=== PATIENT | female | born 1940 | race Caucasian/White ===

== ENCOUNTER → 2016-10-20 | Outpatient (CLI) | payer OTHER ==
[~2016-10-20] MED LIST: ASPEC81; BNC40; METO50TA7 PO; ROSU40TA PO
[2016-10-20 12:37] LABS: ALT/SGPT 33 U/L (12-78); BLOOD UREA NITROGEN 20 mg/dl (7-18); BUN/CREATININE RATIO 24.3 (10-20); CALCIUM 8.8 mg/dl (8.5-10.1); CARBON DIOXIDE 28 mmol/L (21-32); CHLORIDE 107 mmol/L (98-107); CHOLESTEROL 183 mg/dl (0-200); CREATININE 0.84 mg/dl (0.60-1.20); GLUCOSE 121 mg/dl (70-99); POTASSIUM 3.9 mmol/L (3.5-5.1); SODIUM 142 mmol/L (136-145); TRIGLYCERIDES 209 mg/dl (0-150); VERY LOW DENSITY LIPOPROT CALC 42 mg/dl
[2016-10-20 12:40] LABS: ALKALINE PHOSPHATASE 76 U/L (45-117); AST/SGOT 17 U/L (15-37); CHOLESTEROL/HDL RATIO 5.1; HDL CHOLESTEROL 36 mg/dl; LDL CHOLESTEROL CALCULATED 105 mg/dl
[2016-10-20 12:41] LABS: ESTIMATED AVERAGE GLUCOSE 123 mg/dl; HA1C FLAG Normal (Normal)
== END | disposition home or self-care (01) ==
LOC: C.LABPVFM 08:10
PROVIDERS: ATTEND Nurse Practitioner
DX: I10 Essential (primary) hypertension (principal); R73.01 Impaired fasting glucose; E78.2 Mixed hyperlipidemia

== ENCOUNTER → 2016-10-22 | Outpatient (CLI) | payer OTHER ==
--- NOTE | 2016-10-22 11:52 | DIAGNOSTIC IMAGING REPORT ---
SACRUM AND COCCYX 3 VIEWS CLINICAL HISTORY: Chronic left gluteal numbness. Coccygeal pain. FINDINGS: 3 views of the sacrum and coccyx are obtained. No prior studies are available for comparison at the time of dictation. The skeletal structures are osteopenic. There is no radiographic evidence of sacrococcygeal fracture. Lumbosacral spondylosis is partially imaged. Sclerotic change is noted in the sacroiliac joints. Suture material projects over the pelvis. There is no evidence of bowel obstruction. IMPRESSION: 1. No acute bony abnormality is seen. 2. Osteopenia and degenerative change as above. Electronically signed by: Shan Yeager M.D. 10/22/2016 11:50 AM Dictated Date/Time: 10/22/2016 11:49 AM
== END | disposition home or self-care (01) ==
LOC: C.RADPV 10:33
PROVIDERS: ATTEND Nurse Practitioner
DX: M53.3 Sacrococcygeal disorders, not elsewhere classified (principal); M85.88 Other specified disorders of bone density and structure, other site

== ENCOUNTER → 2017-04-19 | Outpatient (CLI) | payer OTHER ==
[2017-04-19 12:41] LABS: BLOOD UREA NITROGEN 25 mg/dl (7-18); BUN/CREATININE RATIO 25.2 (10-20); CALCIUM 9.7 mg/dl (8.5-10.1); CARBON DIOXIDE 27 mmol/L (21-32); CHLORIDE 105 mmol/L (98-107); CREATININE 0.99 mg/dl (0.60-1.20); GLUCOSE 125 mg/dl (70-99); SODIUM 139 mmol/L (136-145)
[2017-04-19 13:14] LABS: ESTIMATED AVERAGE GLUCOSE 126 mg/dl; HA1C FLAG Normal (Normal)
== END | disposition home or self-care (01) ==
LOC: C.LABPVFM 09:05
PROVIDERS: ATTEND Nurse Practitioner
DX: I10 Essential (primary) hypertension (principal); R73.01 Impaired fasting glucose

== ENCOUNTER → 2017-10-19 | Outpatient (CLI) | payer OTHER ==
[~2017-10-19] MED LIST changes: -METO50TA7 PO; +METO50TA8 PO
[2017-10-19 12:56] LABS: BLOOD UREA NITROGEN 20 mg/dl (7-18); CALCIUM 9.3 mg/dl (8.5-10.1); CARBON DIOXIDE 30 mmol/L (21-32); CHOLESTEROL 141 mg/dl (0-200); CREATININE 0.93 mg/dl (0.60-1.20); GLUCOSE 110 mg/dl (70-99); SODIUM 139 mmol/L (136-145)
[2017-10-19 12:59] LABS: LDL CHOLESTEROL CALCULATED 68 mg/dl
== END | disposition home or self-care (01) ==
LOC: C.LABPVFM 10:01
PROVIDERS: ATTEND Nurse Practitioner
DX: I10 Essential (primary) hypertension (principal); R73.01 Impaired fasting glucose; E78.2 Mixed hyperlipidemia

== ENCOUNTER 2022-06-01 17:14 | Inpatient (IN) ==
--- NOTE | 2022-06-01 19:11 | Emergency Department Note ---
History of Present Illness General Chief complaint: Leg Injury/Pain Stated complaint: LEG INJURY Time Seen by Provider: 06/01/22 19:10 History of Present Illness Maximum Pain Intensity: 5 This is an 81-year-old female with a history of hypertension, high cholesterol, accompanied by her daughter who presents with an injury to her right knee. This is secondary to a fall that occurred several hours ago. Her has Parkinson's and was walking through the door and accidentally tripped forward so she tried to catch him and this caused her to twist the right knee and fell onto the right knee. She did not hit her head or lose consciousness, did not injure anything else when she fell. She has been unable to ambulate on the right knee ever since the fall. She has not taken anything for pain and does not want anything now. She denies any headache, neck pain, back pain, chest pain, shortness of breath, abdominal pain, nausea, vomiting, new numbness or tingling in her feet. She has never injured or had any surgery on the right knee. Does not take blood thinners. Home Medications Medication Instructions Recorded Confirmed Type aspirin 81 mg tablet,delayed 81 mg PO HS 06/01/22 06/01/22 History release metoprolol succinate 50 mg 50 mg PO QAM 06/01/22 06/01/22 History tablet,extended release 24 hr olmesartan 40 1 tab PO QAM 06/01/22 06/01/22 History mg-hydrochlorothiazide 12.5 mg tablet (Benicar HCT) rosuvastatin 40 mg tablet 40 mg PO HS 06/01/22 06/01/22 History Allergies Allergy/AdvReac Type Severity Reaction Status Date / Time codeine Allergy Unknown Verified 06/01/22 21:09 oxycodone AdvReac Severe SEVERE Verified 06/01/22 21:09 ITCHING meperidine AdvReac Unknown Unknown Verified 06/01/22 21:09 morphine AdvReac Unknown Unknown Verified 06/01/22 21:09 propoxyphene AdvReac Unknown Unknown Verified 06/01/22 21:09 Past Med/Surg History Medical History Low back pain Lumbar disc herniation Myofascial pain Surgical History History of hysterectomy History of neck surgery History of vaginal surgery Family History Daughter Breast cancer Denies family history of Ovarian cancer Prostate cancer Myocardial infarction Colorectal cancer Social History Smoking Status: Former smoker Tobacco Type: Cigarettes Number of Years Since Quit: 20; Hx Alcohol Use: Yes Hx Substance Use: No Preferred Language: Yemeni Communication Ability: Effective Visual Impairment: No Limitations Hearing Ability: Normal Beliefs That Will Affect Care: None marital status: Current Living Situation: Spouse current occupational status: retired Feels Safe at Home: Yes Dental Care, Regularly: No Seatbelt Use: always Review of Systems See HPI for pertinent positives & negatives. and A total of 10 systems reviewed and were otherwise negative Physical Exam Vital Signs Vital Signs - 24 hr 06/01/22 17:33 06/01/22 19:36 06/01/22 20:55 Temperature 98.2 F Temperature Source Temporal Artery Scan Pulse Rate 68 Pulse Rate [Left Finger] 60 58 L Respiratory Rate 20 20 20 Respiratory Effort / Characteristics Non-Labored Respiratory Depth Normal Blood Pressure 156/73 H Blood Pressure [Left Arm] 160/74 H 149/56 H Blood Pressure Mean 100 Blood Pressure Mean [Left Arm] 102 87 Pulse Oximetry 95 98 98 Oxygen Delivery Method Room Air Room Air Room Air Sepsis Recent Fever Within 48 Hours No Sepsis New/Unexplained Change in Mental Status N/A Sepsis Action Taken by Nursing No Action Required CONSTITUTIONAL: Well developed, well nourished, in no distress at rest however does appear to be in significant pain in the right knee with any changes in position. HEAD: Normocephalic, atraumatic. NECK: Full active range of motion. No spinous process tenderness RESPIRATORY: Breathing unlabored and symmetric. Lungs clear to auscultation bilaterally. No wheeze, rales, or rhonchi. CARDIOVASCULAR: Regular rate and rhythm. No murmurs, rubs, or gallops. PT pulses 2+ bilaterally. CHEST: Nontender, no crepitus. ABDOMEN: Normal bowel sounds. Soft, nontender, no peritonitis. No masses. MUSCULOSKELETAL: Moves bilateral upper extremities at all joints without pain or difficulty. Pelvis is stable, mild tenderness elicited in the right lateral hip. Right lower extremity: Knee is edematous compared to the contralateral knee. No obvious deformities. There is exquisite tenderness along the lateral joint line . Patient unable to bear weight on the knee. Ankle and toes with full range of motion, nontender. Back: No thoracic, lumbar, sacral spinous process tenderness. No step-off deformity. SKIN: [place], warm, dry. NEUROLOGIC: Awake, alert, oriented. Gaze is conjugate. Face symmetric. Sensation intact in bilateral lower extremities PSYCHIATRIC: Appropriate. Normal affect. Course Consultations Consultation #1: Spoke with Dr. Ortiz (orthopedics on-call) who agrees the patient should be admitted, will likely require PT and OT and rehab placement. Is hopeful this does not require surgery. Based on the patient's comfort with slight flexion, he recommends not splinting the patient this evening as she would not be able to tolerate a knee immobilizer, and recommends allowing the Ortho consult provider tomorrow to decide on appropriate splinting for the patient. He does recommend a Rosales catheter. Medical Decision Making Differential Diagnosis Fracture, dislocation, subluxation, sprain, strain, tendon injury, nerve injury, compartment syndrome, ligament injury, intrathoracic, intra-abdominal, among other pathology Medical Records Attestation: I reviewed the patient's medical records. Laboratory Data Result diagrams: 06/01/22 20:10 06/01/22 20:10 Imaging Data Attestation: I personally reviewed and interpreted this imaging study as follows: (I agree with the radiologist's interpretation) Radiologist's Impression: Hip/Pelvis X-Ray 06/01/22 19:22 XR hip RT 2V w pelvis CLINICAL HISTORY: fall, mild r hip tenderness COMPARISON STUDY: Sacrum 10/22/2016. FINDINGS: Suboptimal evaluation of the pelvis and hips due to the patient's body habitus. However, no definite fracture or dislocation within the pelvis or hips. The sacrum appears intact. Vascular calcifications are noted. Mild degenerative changes. IMPRESSION: No definite fracture or dislocation within the pelvis or hips ACT 112: Negative or not required by law. Electronically signed by: Iván Fields M.D. 06/01/2022 8:12 PM Knee X-Ray 06/01/22 19:22 XR knee RT 3V CLINICAL HISTORY: lateral joint line pain, fall. Right knee pain. COMPARISON STUDY: None. FINDINGS: There is a moderate lipohemarthrosis. There is a comminuted and displaced lateral tibial plateau fracture which demonstrates up to 5 mm of depression. There is nondisplaced fracture within the fibular head. The distal femur is intact. IMPRESSION: 1. Comminuted and displaced lateral tibial plateau fracture. 2. Nondisplaced fibular head fracture. 3. Moderate lipohemarthrosis. ACT 112: Negative or not required by law. Electronically signed by: Iván Fields M.D. 06/01/2022 8:06 PM MDM Narrative This is an 81-year-old female who presents with isolated right knee pain secondary to a twisting fall onto the right knee that occurred several hours ago. On exam, patient does appear to be in significant pain anytime she is changing positions with the right knee, is unable to fully extend the knee, feels better with slight flexion. She has significant tenderness over the lateral joint line of the right knee. Minimal tenderness appreciated over the right hip. No additional injuries identified. She is neurovascularly intact. X-ray of the right hip and right knee obtained demonstrating a comminuted depressed lateral tibial plateau fracture with an associated fibular head fracture. Patient declined anything for pain. Spoke with ED attending Dr. Mckinney who also evaluated the patient at bedside. We both agree admission is warranted as the patient will be unable to function at home given the extent of her injury and age. Spoke with Dr. Ortiz (orthopedics on-call) who agrees patient will need to be admitted, made specific recommendations as described above. Case discussed with hospitalist Dr. Chao who agrees to admit the patient. Baseline labs are pending at time of admission. Impression & Plan Closed fracture of tibial plateau, Closed fracture fibula, head, Fall due to accidental trip by another person Discharge Plan Visit Data Chief Complaint: Leg Injury/Pain Stated Complaint: LEG INJURY ED Provider: Jamin Mckinney ED Midlevel Provider: Grayson Reardon Discharge Problem: Closed fracture of tibial plateau, Closed fracture fibula, head, Fall due to accidental trip by another person Patient Disposition: Admitted As Inpatient Condition: Fair Forms Stand Alone Forms: [facility] Prescriptions Prescriptions: No Action rosuvastatin 40 mg tablet 40 mg PO HS aspirin 81 mg Tablet,Delayed Release (Dr/Ec) 81 mg PO HS metoprolol succinate 50 mg tablet extended release 24 hr 50 mg PO QAM olmesartan-hydrochlorothiazide [Benicar HCT] 40-12.5 mg tablet 1 tab PO QAM Referrals Referrals: Ema Becerra CRNP [Primary Care Provider] - : Closed fracture of tibial plateau Qualifiers: Encounter type: initial encounter Laterality: right Qualified Code(s): S82.141A - Displaced bicondylar fracture of right tibia, initial encounter for closed fracture Closed fracture fibula, head Qualifiers: Encounter type: initial encounter Laterality: right Qualified Code(s): S82.831A - Other fracture of upper and lower end of right fibula, initial encounter for closed fracture
--- NOTE | 2022-06-01 19:59 | Emergency Department Note ---
ED Visit Note Patient was seen with the physician contact center assistant at bedside. Patient's x-ray reveals a tibial plateau fracture patient has tenderness in the right lower extremity at the proximal tibia patient is neurovascularly intact distally. I agree with the plan of disposition and treatment. I have spoken to the patient and the patient's daughter at bedside. .
--- NOTE | 2022-06-01 20:08 | XRay Report ---
XR knee RT 3V CLINICAL HISTORY: lateral joint line pain, fall. Right knee pain. COMPARISON STUDY: None. FINDINGS: There is a moderate lipohemarthrosis. There is a comminuted and displaced lateral tibial pl ateau fracture which demonstrates up to 5 mm of depression. There is nondisplaced fracture within the fibular head. The distal femur is intact. IMPRESSION: 1. Comminuted and displaced lateral tibial plateau fracture. 2. Nondisplaced fibular head fracture. 3. Moderate lipohemarthrosis. ACT 112: Negative or not required by law. Electronically signed by: Iván Fields M.D. 06/01/2022 8:06 PM
--- NOTE | 2022-06-01 20:13 | XRay Report ---
XR hip RT 2V w pelvis CLINICAL HISTORY: fall, mild r hip tenderness COMPARISON STUDY: Sacrum 10/22/2016. FINDINGS: Suboptimal evaluation of the pelvis and hips due to the patient's body habitus. However, no definite fracture or dislocation within the pelvis or hips. The sacrum appears intact. Vascular calc ifications are noted. Mild degenerative changes. IMPRESSION: No definite fracture or dislocation within the pelvis or hips ACT 112: Negative or not required by law. Electronically signed by: Iván Fields M.D. 06/01/2022 8:12 PM
--- NOTE | 2022-06-01 21:28 | History & Physical Report ---
Date of Service June 01, 2022 Assessment & Plan (1) Fall due to accidental trip by another person: Plan: 81yo female with history of HTN, HLP presenting after a fall at home resulting in right sided comminuted and displaced lateral tibial plateau fracture and nondisplaced fibular head fracture. Patient is presently comfortable. RLE is elevated on a pillow. She does not wish to take any pain medication, specifically opioids, due to side effects. No additional complaints at this time. -Admit to medical -Maintain RLE in flexed, elevated position -Orthopedics consultation appreciated -Cold compresses to RLE -Pure-wick catheter ordered -Most likely non-operative management with splint placement. However, will keep patient NPO after midnight - hold ASA, Olmesartan/HCTZ for now in event of surgery in AM -Pain control with Tylenol PRN -Zofran PRN -Instructed patient to notify nurse if pain is not controlled with Tylenol alone. She is hesitant to take stronger agents -PT/OT evaluation - Right non-weight bearing for now, adjust instructions as appropriate after Ortho evaluation -Hold ASA for now, resume in AM if no surgery planned (2) Closed fracture of tibial plateau: (3) Closed fracture fibula, head: (4) Benign essential hypertension: Plan: Blood pressure mildly elevated at present, 155/80 -Continue Metoprolol 50mg po qAM -Holding Olmesartan/HCTZ for now - resume tomorrow if no surgery planned -Monitor (5) Mixed hyperlipidemia: Plan: Chronic -Continue Rosuvastatin History of Present Illness Chief Complaint: fall Primary Care Provider: RAMOS Michaels Nasra Graves is an 81yo female with history of HTN and HLP presenting from home after a fall resulting in a right sided tibial plateau/fibular head fracture. Patient was at home today with her who has Parkinson's Disease. Her lost his balance and began to fall and the patient tried to catch him. Patient's fell onto the patient - reports that he felt a pop from her leg. Patient was unable to ambulate or bear weight on the right leg following the fall due to pain. She did not hit her head or lose consciousness. No additional complaints. S pecifically denies chest pain, palpitations, dizziness, abdominal pain, nausea, vomiting, diarrhea or shortness of breath. ER provider discussed case with Orthopedics. Recommended resting the leg, will have splint placement in AM. Daughter at bedside wants to take patient home tonight. ER Course: No medications administered Allergies Allergy/AdvReac Type Severity Reaction Status Date / Time codeine Allergy Unknown Verified 06/01/22 21:09 oxycodone AdvReac Severe SEVERE Verified 06/01/22 21:09 ITCHING meperidine AdvReac Unknown Unknown Verified 06/01/22 21:09 morphine AdvReac Unknown Unknown Verified 06/01/22 21:09 propoxyphene AdvReac Unknown Unknown Verified 06/01/22 21:09 Home Medications Medication Instructions Recorded Confirmed Type aspirin 81 mg tablet,delayed 81 mg PO HS 06/01/22 06/01/22 History release metoprolol succinate 50 mg 50 mg PO QAM 06/01/22 06/01/22 History tablet,extended release 24 hr olmesartan 40 1 tab PO QAM 06/01/22 06/01/22 History mg-hydrochlorothiazide 12.5 mg tablet (Benicar HCT) rosuvastatin 40 mg tablet 40 mg PO HS 06/01/22 06/01/22 History Past Med/Surg History Medical History Benign essential hypertension Mixed hyperlipidemia Surgical History History of hysterectomy History of neck surgery History of vaginal surgery Family History Daughter Breast cancer Denies family history of Ovarian cancer Prostate cancer Myocardial infarction Colorectal cancer Social History Smoking Status: Former smoker Tobacco Type: Cigarettes Number of Years Since Quit: 20; Hx Alcohol Use: Yes Hx Substance Use: No Preferred Language: Romanian Communication Ability: Effective Visual Impairment: No Limitations Hearing Ability: Normal Beliefs That Will Affect Care: None marital status: Current Living Situation: Spouse current occupational status: retired Feels Safe at Home: Yes Dental Care, Regularly: No Seatbelt Use: always Review of Systems Review of Systems: All systems reviewed & are unremarkable except as noted in HPI & below Physical Exam Physical Exam: General: patient resting comfortably, NAD, non-toxic in appearance, AA&O x 4 Skin: warm, dry, intact, no rashes or lesions HEENT: NC/AT, PERRL, EOMI, anicteric sclera, conjunctiva without injection, external ear normal to inspection and nontender, nares patent, moist mucus membranes, dentition intact, no oropharyngeal lesions, neck supple, trachea midline, no LAD, no thyromegaly, no JVD Heart: +S1/S2, regular, no m/r/g Lungs: equal air entry bilaterally, no rales/rhonchi/wheezes Abd: +BS, soft, NT/ND, no masses/organomegaly/ascites Ext: warm, 2+ pulses in UE/LE bilaterally, no clubbing/cyanosis or edema, RLE with tenderness to palpation, no gross deformity, NVI Neuro: nonfocal, patient AA&O x 4, speech intact, no facial droop, moving all extremities on command with equal strength 5/5 Results & Data Results & Data ([facility]) Vital Signs (Past 12 Hours) Vital Signs Temp Pulse Pulse Resp BP BP Pulse Ox 06/01/22 20:55 58 L 20 149/56 H 98 06/01/22 19:36 60 20 160/74 H 98 06/01/22 17:33 36.8 C 68 20 156/73 H 95 O2 Del Method 06/01/22 20:55 Room Air 06/01/22 19:36 Room Air 06/01/22 17:33 Room Air Laboratory Results Laboratory Results WBC 12.36 K/ul (4.8-10.8) H 06/01/22 20:10 RBC 5.09 M/uL (3.93-5.22) 06/01/22 20:10 Hgb 14.5 g/dl (12.0-16.0) 06/01/22 20:10 Hct 45.2 % (34.1-44.9) H 06/01/22 20:10 MCV 88.8 fL (80.0-100.0) 06/01/22 20:10 MCH 28.5 pg (25.0-34.0) 06/01/22 20:10 MCHC 32.1 g/dL (32.0-36.0) 06/01/22 20:10 RDW Std Deviation 43.9 fL (36.4-46.3) 06/01/22 20:10 RDW Coeff of Sylvain 13.6 % (11.5-14.5) 06/01/22 20:10 Plt Count 200 K/uL (130-400) 06/01/22 20:10 MPV 10.5 fL (9.4-12.3) 06/01/22 20:10 Immature Gran % (Auto) 0.4 % 06/01/22 20:10 Neut % (Auto) 72.6 % 06/01/22 20:10 Lymph % (Auto) 19.5 % 06/01/22 20:10 Lipscomb % (Auto) 5.9 % 06/01/22 20:10 Eos % (Auto) 0.9 % 06/01/22 20:10 Baso % (Auto) 0.7 % 06/01/22 20:10 Neut # (Auto) 8.97 K/uL (1.4-6.5) H 06/01/22 20:10 Lymph # (Auto) 2.41 K/uL (1.2-3.4) 06/01/22 20:10 Lipscomb # (Auto) 0.73 K/uL (0.24-0.82) 06/01/22 20:10 Eos # (Auto) 0.11 K/uL (0-0.50) 06/01/22 20:10 Baso # (Auto) 0.09 K/uL (0-0.2) 06/01/22 20:10 Immature Gran # (Auto) 0.05 K/uL (0.00-0.02) H 06/01/22 20:10 Sodium 141 mmol/L (136-145) 06/01/22 20:10 Potassium 3.9 mmol/L (3.5-5.1) 06/01/22 20:10 Chloride 105 mmol/L (98-107) 06/01/22 20:10 Carbon Dioxide 27 mmol/L (21-32) 06/01/22 20:10 Anion Gap 9 (3-11) 06/01/22 20:10 BUN 25 mg/dl (6-23) H 06/01/22 20:10 Creatinine 1.06 mg/dl (0.6-1.2) 06/01/22 20:10 Est Cr Clr Drug Dosing 42.3 ml/min 06/01/22 20:10 Est GFR ( Amer) 56.2 ml/min 06/01/22 20:10 Est GFR (Non-Af Amer) 48.5 ml/min 06/01/22 20:10 BUN/Creatinine Ratio 23.6 (10-20) H 06/01/22 20:10 Glucose 100 mg/dl (70-99(Fasting)) H 06/01/22 20:10 Calcium 9.8 mg/dl (8.5-10.1) 06/01/22 20:10 Total Bilirubin 0.5 mg/dl (0.2-1.0) 06/01/22 20:10 AST 16 U/L (13-39) 06/01/22 20:10 ALT 16 U/L (7-52) 06/01/22 20:10 Alkaline Phosphatase 74 U/L (34-104) 06/01/22 20:10 Total Protein 7.5 gm/dl (6.0-8.3) 06/01/22 20:10 Albumin 4.5 gm/dl (3.4-5.0) 06/01/22 20:10 Globulin 3.0 gm/dl (2.5-4.0) 06/01/22 20:10 Albumin/Globulin Ratio 1.5 (0.9-2) 06/01/22 20:10 SARS-CoV-2, RNA, NAAT NEGATIVE (NEGATIVE) 06/01/22 21:15 Impressions Hip/Pelvis X-Ray 06/01/22 19:22 XR hip RT 2V w pelvis CLINICAL HISTORY: fall, mild r hip tenderness COMPARISON STUDY: Sacrum 10/22/2016. FINDINGS: Suboptimal evaluation of the pelvis and hips due to the patient's body habitus. However, no definite fracture or dislocation within the pelvis or hips. The sacrum appears intact. Vascular calcifications are noted. Mild degenerative changes. IMPRESSION: No definite fracture or dislocation within the pelvis or hips ACT 112: Negative or not required by law. Electronically signed by: Iván Fields M.D. 06/01/2022 8:12 PM Knee X-Ray 06/01/22 19:22 XR knee RT 3V CLINICAL HISTORY: lateral joint line pain, fall. Right knee pain. COMPARISON STUDY: None. FINDINGS: There is a moderate lipohemarthrosis. There is a comminuted and displaced lateral tibial plateau fracture which demonstrates up to 5 mm of depression. There is nondisplaced fracture within the fibular head. The distal femur is intact. IMPRESSION: 1. Comminuted and displaced lateral tibial plateau fracture. 2. Nondisplaced fibular head fracture. 3. Moderate lipohemarthrosis. ACT 112: Negative or not required by law. Electronically signed by: Iván Fields M.D. 06/01/2022 8:06 PM PG Care Time/CCT Total # of Minutes Spent Total Time Spent with Patient: Total time spent is greater than 50% in coordination of care (as documented) at patient's floor/unit and/or counseling patient: Coding Level of Care Code 39523 Initial Inpt Care Lvl 2 Diagnoses Fall due to accidental trip by another person W03.XXXA Closed fracture of tibial plateau S82.141A Encounter type: initial encounter Laterality: right Closed fracture fibula, head S82.831A Encounter type: initial encounter Laterality: right Benign essential hypertension I10 Mixed hyperlipidemia E78.2 (1) Closed fracture of tibial plateau Encounter type: initial encounter Laterality: right Qualified Code(s): S82.141A - Displaced bicondylar fracture of right tibia, initial encounter for closed fracture (2) Closed fracture fibula, head Encounter type: initial encounter Laterality: right Qualified Code(s): S82.831A - Other fracture of upper and lower end of right fibula, initial encounter for closed fracture
[2022-06-01 21:31] LABS: Basophils # (auto) 0.09 K/uL (0-0.2); Basophils % (auto) 0.7 %; Eosinophils # (auto) 0.11 K/uL (0-0.50); Eosinophils % (auto) 0.9 %; Hematocrit (blood only) 45.2 % (34.1-44.9); Hemoglobin 14.5 g/dl (12.0-16.0); Immature Granulocytes # (auto) 0.05 K/uL (0.00-0.02); Immature Granulocytes % (auto) 0.4 %; Lymphocytes # (auto) 2.41 K/uL (1.2-3.4); Lymphocytes % (auto) 19.5 %; Mean Corpuscular Hemoglobin 28.5 pg (25.0-34.0); Mean Corpuscular Hgb Conc 32.1 g/dL (32.0-36.0); Mean Corpuscular Volume 88.8 fL (80.0-100.0); Mean Platelet Volume 10.5 fL (9.4-12.3); Monocytes # (auto) 0.73 K/uL (0.24-0.82); Monocytes % (auto) 5.9 %; Neutrophils # (auto) 8.97 K/uL (1.4-6.5); Neutrophils % (auto) 72.6 %; Platelet Count 200 K/uL (130-400); RDW Coefficient of Variation 13.6 % (11.5-14.5); RDW Standard Deviation 43.9 fL (36.4-46.3); Red Blood Count 5.09 M/uL (3.93-5.22); White Blood Count 12.36 K/ul (4.8-10.8)
[2022-06-01 21:40] LABS: Albumin Globulin Ratio 1.5 (0.9-2); Albumin Level 4.5 gm/dl (3.4-5.0); BUN Creatinine Ratio 23.6 (10-20); Bilirubin,Total 0.5 mg/dl (0.2-1.0); Calcium 9.8 mg/dl (8.5-10.1); Creatinine Clr Calc Pharmacy 42.3 ml/min; Est GFR (African American) 56.2 ml/min; Est GFR (Non-African American) 48.5 ml/min; Potassium 3.9 mmol/L (3.5-5.1); Total Protein 7.5 gm/dl (6.0-8.3)
[2022-06-01] MEDS ORDERED: ONDANSETRON INJ 2 MG/ML 2 ML VIAL IV PRN (23:51)
[2022-06-01] MEDS ORDERED: ACETAMINOPHEN 325 MG TAB PO PRN (23:51)
[2022-06-02] MEDS: METOPROLOL SUCC 50MG EXT REL TAB PO SCH (08:40)
--- NOTE | 2022-06-02 11:18 | CT Scan Report ---
CT knee RT wo con CLINICAL HISTORY: tibial plateau fracture TECHNIQUE: Multidetector row helical CT of the right knee was performed without intravenous contrast. Coronal and sagittal reformations were obtained. Automated dose lowering techniques and/or adjustmen t according to patient size were utilized for this examination. CT DOSE: 365.32 mGy.cm Comparison: Comparison is made to right knee radiographs 06/01/2022 FINDINGS: There is a comminuted acute fracture of the lateral plateau of the tibia which extends to the medial aspect of the tibial tubercle.. In addition, there is a nondisplaced fracture of the proximal fibula. The joint spaces are maintained. There is a small suprapatellar lipohemarthrosis. Soft tissue swelli ng is seen. IMPRESSION: 1. Comminuted fracture of the lateral plateau of the tibia with extension to the medial articular rogers rface. 2. Nondisplaced fracture of the fibular head. 3. Soft tissue swelling and lipohemarthrosis. ACT 112: Negative or not required by law. Electronically signed by: Sadiq Koroma M.D. 06/02/2022 11:16 AM
[2022-06-02] MEDS ORDERED: ONDANSETRON INJ 2 MG/ML 2 ML VIAL IV STA (13:42)
[2022-06-02] MEDS ORDERED: KETOROLAC TROMETHAMINE 15 MG/ML VIAL IV ONE (13:45)
--- NOTE | 2022-06-02 14:56 | Orthopedic Consultation ---
Date of Consultation June 02, 2022 Assessment & Plan (1) Closed fracture of tibial plateau: Case was discussed with Dr. Llanos. X-rays and CT scan have been reviewed. Patient's daughter is present and she and I spoke to Dr. Llanos over the phone to answer any questions that she and her mother may have had. Dr. Llanos explained the process of either surgical versus nonsurgical treatment. After answering all of her questions, the patient and her daughter agreed to surgical intervention. We will plan for ORIF of her right tibial plateau fracture tomorrow with Dr. Llanos. Patient will be n.p.o. after midnight. 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 The patient was in the process of helping her . He did not want to use his walker for the short walk and ended up losing his balance. Her fell into her as she was trying to support him and they ended up going down to the floor. She had immediate pain in her right knee and was having some difficulty ambulating. Patient did not hit her head. She did not lose consciousness. There is no shortness of breath, chest pain, lighthe adedness prior to or after the fall. She came to the emergency room here at [facility]. She was seen by the staff and x-rays were taken. X-rays showed a depressed tibial plateau fracture. Patient was thusly admitted by the hospitalist service and we have been asked to take care of her tibial plateau fracture. Allergies Allergy/AdvReac Type Severity Reaction Status Date / Time codeine Allergy Unknown Verified 06/01/22 21:09 oxycodone AdvReac Severe SEVERE Verified 06/01/22 21:09 ITCHING meperidine AdvReac Unknown Unknown Verified 06/01/22 21:09 morphine AdvReac Unknown Unknown Verified 06/01/22 21:09 propoxyphene AdvReac Unknown Unknown Verified 06/01/22 21:09 Home Medications Medication Instructions Recorded Confirmed Type aspirin 81 mg tablet,delayed 81 mg PO HS 06/01/22 06/01/22 History release metoprolol succinate 50 mg 50 mg PO QAM 06/01/22 06/01/22 History tablet,extended release 24 hr olmesartan 40 1 tab PO QAM 06/01/22 06/01/22 History mg-hydrochlorothiazide 12.5 mg tablet (Benicar HCT) rosuvastatin 40 mg tablet 40 mg PO HS 06/01/22 06/01/22 History Patient History Medical History (Updated 06/03/22 @ 15:56 by Iván Romo MD) Benign essential hypertension Carotid artery stenosis Mixed hyperlipidemia Surgical History History of hysterectomy History of neck surgery History of vaginal surgery Family History Daughter Breast cancer Denies family history of Ovarian cancer Prostate cancer Myocardial infarction Colorectal cancer Social History Smoking Status: Former smoker Tobacco Type: Cigarettes Number of Years Since Quit: 20; Second Hand Exposure: No; Do You Dip or Chew Tobacco: No; Tobacco Cessation Education Requested by Patient: No Hx Alcohol Use: Yes Alcohol type: other Hx Substance Use: No Preferred Language: Mohawk Communication Ability: Effective Visual Impairment: No Limitations Hearing Ability: Normal Order Make Up Clerk Required: No Beliefs That Will Affect Care: None marital status: Current Living Situation: Spouse current occupational status: retired Feels Safe at Home: Yes Safety Concerns: Feels Safe At This Time Dental Care, Regularly: No Seatbelt Use: always Assistive Devices: None Physical Exam Physical Exam: Patient is a 81-year-old obese white female who is alert and oriented x3, no acute distress, pleasant and cooperative. On examination, she has an immobilizer on her right knee. This is removed to examine the knee. No range of motion is done at this time secondary to fracture. She does have a moderate effusion of the right knee and some mild ecchymosis. She is tender on palpation. She has no tenderness below the knee on palpation of the lower tibia down to the ankle. She has good range of motion of her right ankle without discomfort. She denies pain of her right hip or femur. She is nontender on palpation in these areas. Left lower extremity is unaffected and she has range of motion that is intact with the left hip, knee, ankle. Upper extremities have not been affected and she is nontender at the shoulders, elbows, and wrists. Distal pulses are equal bilaterally of the upper and lower extremities. There is no gross motor or sensory loss seen at this time. She denies any new cervical, thoracic, lumbar pain at this time. Results & Data ([facility]) Vital Signs (Past 12 Hours) Vital Signs Temp Pulse Resp BP Pulse Ox O2 Del Method 06/02/22 07:41 36.9 C 60 16 131/61 91 Room Air Laboratory Results Laboratory Results WBC 12.36 K/ul (4.8-10.8) H 06/01/22 20:10 RBC 5.09 M/uL (3.93-5.22) 06/01/22 20:10 Hgb 14.5 g/dl (12.0-16.0) 06/01/22 20:10 Hct 45.2 % (34.1-44.9) H 06/01/22 20:10 MCV 88.8 fL (80.0-100.0) 06/01/22 20:10 MCH 28.5 pg (25.0-34.0) 06/01/22 20:10 MCHC 32.1 g/dL (32.0-36.0) 06/01/22 20:10 RDW Std Deviation 43.9 fL (36.4-46.3) 06/01/22 20:10 RDW Coeff of Sylvain 13.6 % (11.5-14.5) 06/01/22 20:10 Plt Count 200 K/uL (130-400) 06/01/22 20:10 MPV 10.5 fL (9.4-12.3) 06/01/22 20:10 Immature Gran % (Auto) 0.4 % 06/01/22 20:10 Neut % (Auto) 72.6 % 06/01/22 20:10 Lymph % (Auto) 19.5 % 06/01/22 20:10 [place] % (Auto) 5.9 % 06/01/22 20:10 Eos % (Auto) 0.9 % 06/01/22 20:10 Baso % (Auto) 0.7 % 06/01/22 20:10 Neut # (Auto) 8.97 K/uL (1.4-6.5) H 06/01/22 20:10 Lymph # (Auto) 2.41 K/uL (1.2-3.4) 06/01/22 20:10 [place] # (Auto) 0.73 K/uL (0.24-0.82) 06/01/22 20:10 Eos # (Auto) 0.11 K/uL (0-0.50) 06/01/22 20:10 Baso # (Auto) 0.09 K/uL (0-0.2) 06/01/22 20:10 Immature Gran # (Auto) 0.05 K/uL (0.00-0.02) H 06/01/22 20:10 Sodium 141 mmol/L (136-145) 06/01/22 20:10 Potassium 3.9 mmol/L (3.5-5.1) 06/01/22 20:10 Chloride 105 mmol/L (98-107) 06/01/22 20:10 Carbon Dioxide 27 mmol/L (21-32) 06/01/22 20:10 Anion Gap 9 (3-11) 06/01/22 20:10 BUN 25 mg/dl (6-23) H 06/01/22 20:10 Creatinine 1.06 mg/dl (0.6-1.2) 06/01/22 20:10 Est Cr Clr Drug Dosing 42.3 ml/min 06/01/22 20:10 Est GFR ( Amer) 56.2 ml/min 06/01/22 20:10 Est GFR (Non-Af Amer) 48.5 ml/min 06/01/22 20:10 BUN/Creatinine Ratio 23.6 (10-20) H 06/01/22 20:10 Glucose 100 mg/dl (70-99(Fasting)) H 06/01/22 20:10 Calcium 9.8 mg/dl (8.5-10.1) 06/01/22 20:10 Total Bilirubin 0.5 mg/dl (0.2-1.0) 06/01/22 20:10 AST 16 U/L (13-39) 06/01/22 20:10 ALT 16 U/L (7-52) 06/01/22 20:10 Alkaline Phosphatase 74 U/L (34-104) 06/01/22 20:10 Total Protein 7.5 gm/dl (6.0-8.3) 06/01/22 20:10 Albumin 4.5 gm/dl (3.4-5.0) 06/01/22 20:10 Globulin 3.0 gm/dl (2.5-4.0) 06/01/22 20:10 Albumin/Globulin Ratio 1.5 (0.9-2) 06/01/22 20:10 SARS-CoV-2, RNA, NAAT NEGATIVE (NEGATIVE) 06/01/22 21:15 Impressions Hip/Pelvis X-Ray 06/01/22 19:22 XR hip RT 2V w pelvis CLINICAL HISTORY: fall, mild r hip tenderness COMPARISON STUDY: Sacrum 10/22/2016. FINDINGS: Suboptimal evaluation of the pelvis and hips due to the patient's body habitus. However, no definite fracture or dislocation within the pelvis or hips. The sacrum appears intact. Vascular calcifications are noted. Mild degenerative changes. IMPRESSION: No definite fracture or dislocation within the pelvis or hips ACT 112: Negative or not required by law. Electronically signed by: Iván Fields M.D. 06/01/2022 8:12 PM Knee X-Ray 06/01/22 19:22 XR knee RT 3V CLINICAL HISTORY: lateral joint line pain, fall. Right knee pain. COMPARISON STUDY: None. FINDINGS: There is a moderate lipohemarthrosis. There is a comminuted and displaced lateral tibial plateau fracture which demonstrates up to 5 mm of depression. There is nondisplaced fracture within the fibular head. The distal femur is intact. IMPRESSION: 1. Comminuted and displaced lateral tibial plateau fracture. 2. Nondisplaced fibular head fracture. 3. Moderate lipohemarthrosis. ACT 112: Negative or not required by law. Electronically signed by: Iván Fields M.D. 06/01/2022 8:[address] 06/02/22 08:20 CT knee RT wo con CLINICAL HISTORY: tibial plateau fracture TECHNIQUE: Multidetector row helical CT of the right knee was performed without intravenous contrast. Coronal and sagittal reformations were obtained. Automated dose lowering techniques and/or adjustment according to patient size were utilized for this examination. CT DOSE: 365.32 mGy.cm Comparison: Comparison is made to right knee radiographs 06/01/2022 FINDINGS: There is a comminuted acute fracture of the lateral plateau of the tibia which extends to the medial aspect of the tibial tubercle.. In addition, there is a nondisplaced fracture of the proximal fibula. The joint spaces are maintained. There is a small suprapatellar lipohemarthrosis. Soft tissue swelling is seen. IMPRESSION: 1. Comminuted fracture of the lateral plateau of the tibia with extension to the medial articular surface. 2. Nondisplaced fracture of the fibular head. 3. Soft tissue swelling and lipohemarthrosis. ACT 112: Negative or not required by law. Electronically signed by: Sadiq Koroma M.D. 06/02/2022 11:16 AM (1) Closed fracture of tibial plateau Encounter type: initial encounter Laterality: right Qualified Code(s): S82.141A - Displaced bicondylar fracture of right tibia, initial encounter for closed fracture
[2022-06-02] MEDS ORDERED: KETOROLAC TROMETHAMINE 15 MG/ML VIAL IV PRN (14:58)
[2022-06-02] MEDS ORDERED: traMADol HCL 50 MG TABLET PO PRN (15:05)
[2022-06-02] MEDS: ACETAMINOPHEN 500 MG TAB PO PRN (16:58)
--- NOTE | 2022-06-02 17:28 | Anesthesiology Consultation ---
Date of Service June 02, 2022 Assessment & Plan (1) Encounter for pre-operative examination: Chart Review Chart Review: Acceptable Risk for Surgery and Patient NOT seen in Pre Admission Testing Consults Requested none Additional Notes pending ECG review History Surgery Operation Date: 06/03/22 09:20 Proposed Procedures p ORIF of Right Tibial Plateau Fracture - Duran Llanos, Height/Weight Height: 5 ft 2 in Weight: 88.6 kg Allergies Allergy/AdvReac Type Severity Reaction Status Date / Time codeine Allergy Unknown Verified 06/01/22 21:09 oxycodone AdvReac Severe SEVERE Verified 06/01/22 21:09 ITCHING meperidine AdvReac Unknown Unknown Verified 06/01/22 21:09 morphine AdvReac Unknown Unknown Verified 06/01/22 21:09 propoxyphene AdvReac Unknown Unknown Verified 06/01/22 21:09 Medications Home Medications Medication Instructions Recorded Confirmed Last Taken aspirin 81 mg tablet,delayed 81 mg PO HS 06/01/22 06/01/22 05/31/22 release metoprolol succinate 50 mg 50 mg PO QAM 06/01/22 06/01/22 06/01/22 tablet,extended release 24 hr olmesartan 40 1 tab PO QAM 06/01/22 06/01/22 06/01/22 mg-hydrochlorothiazide 12.5 mg tablet (Benicar HCT) rosuvastatin 40 mg tablet 40 mg PO HS 06/01/22 06/01/22 05/31/22 Active Medications Generic Name Dose Route Start Last Admin Trade Name Freq PRN Reason Stop Dose Admin Acetaminophen 1,000 mg 06/02/22 15:05 06/02/22 16:58 Acetaminophen 500 Mg Tab PO 07/02/22 15:04 1,000 mg Q8H PRN Administration Mild Pain Metoprolol Succinate 50 mg 06/02/22 09:00 06/02/22 08:40 Metoprolol Succ 50mg Ext Rel Tab PO 07/02/22 08:59 50 mg QAM JUANITA Administration Ondansetron HCl 4 mg 06/01/22 23:51 06/02/22 10:01 Ondansetron Inj 2 Mg/Ml 2 Ml Vial IV 07/01/22 23:50 4 mg Q6H PRN Administration Nausea And Vomiting Past Medical History Medical History Benign essential hypertension Mixed hyperlipidemia Past Family History Family History Daughter Breast cancer Denies family history of Ovarian cancer Prostate cancer Myocardial infarction Colorectal cancer Past Surgical History Surgical History History of hysterectomy History of neck surgery History of vaginal surgery Social History Smoking Status: Former smoker tobacco type: cigarettes Do You Dip or Chew Tobacco: No Hx Alcohol Use: Yes Alcohol type: other alcohol intake frequency: other Alcohol Intake Frequency Comment: rarely Hx Substance Use: No substance use type: does not use Physical Exam Vital Signs Last Vital Signs Temp 97.9 F 06/02/22 14:58 Pulse 68 06/02/22 14:58 Resp 16 06/02/22 14:58 BP 120/67 06/02/22 14:58 Pulse Ox 90 06/02/22 14:58 O2 Del Method 06/02/22 14:58 Testing Laboratory Results 06/01/22 20:10 06/01/22 20:10
--- NOTE | 2022-06-02 17:36 | Hospitalist Progress Note ---
Date of Service June 02, 2022 Assessment & Plan (1) Fall due to accidental trip by another person: Plan: Attending: Dr. Thorpe Impression:81yo female with history of HTN, HLP presenting after a fall at home resulting in right sided comminuted and displaced lateral tibial plateau fracture and nondisplaced fibular head fracture. Patient is presently comfortable. RLE is elevated on a pillow. She does not wish to take any pain medication, specifically opioids, due to side effects. No additional complaints at this time. No loss of consciousness or head injury with fall Patient's has Parkinson's and lost his balance and fell into her resulting in fracture of leg Patient's daughter is here and corroborates story Plan on occupational and physical therapy evaluation before discharge but certainly does not appear to be anything other than accidental fall from accident with (2) Closed fracture of tibial plateau: Plan: Patient seen by orthopedics At this time patient will be added onto the schedule for tomorrow for open reduction internal fixation Analisa is present for discussion and agreement with plan Continue pain management as needed-added prn toradol, tramadol, scheduled tylenol Good pulses and circulation to right lower extremity Continue with immobilizer and nonweightbearing on right side N.p.o. after midnight Continue to hold aspirin (3) Closed fracture fibula, head: Plan: Continue with immobilization of knee Nonweightbearing of right leg Orthopedics consulted and managing (4) Benign essential hypertension: Plan: Blood pressure mildly elevated at present, 155/80 on admission Continue Metoprolol 50mg po qAM Holding Olmesartan/HCTZ for now Blood pressure 120/67 Monitor (5) Mixed hyperlipidemia: Plan: Chronic Continue Rosuvastatin Admission and Anticipated Discharge Date Admission Date: June 01, 2022 Supervising Physician Co-Signing Physician Notes PA Supervision Note: I did not personally see or examine the patient today, but I verified all oconnell points of GIOVANI Hubbard's assessment and plan with the following exceptions/additions: Pt needs preop ECG in the AM. If ECG normal, otherwise, proceed to this intermediate risk surgery with average perioperative CV risk. Subjective Attending: Dr. Thorpe This is a pleasant 81-year-old female that is previously an employee here [employer]. She retired in 2016. She is doing well at home with her who has Parkinson's. Unfortunately, the lost his balance and fell on the patient yesterday resulting in closed fracture of the right tibial plateau. Patient was placed in immobilizer and admitted for further evaluation. She was seen by orthopedics this morning and at this time it is planned that the patient was surgical intervention with Dr. Llanos as an add-on tomorrow. Patient's daughter is present for the entire examination and interview. She adds to discussion and affirms the patient's story. Patient denies any fever, chills, sweats, rigors. She has had nausea throughout the day and attributes it to pain. She has been kept n.p.o. since she was admitted and was given 1 dose of IV Zofran 4 mg. She initially was refusing narcotic analgesia as she has allergies to codeine, oxycodone, morphine. She did agree to Toradol and I gave her an additional dose of Zofran and that seemed to alleviate her pain as well as nausea. I also gave her a diet and she was able to eat some crackers and later lunch. She currently has no other acute complaints other than pain and nausea. Review of Systems Review of Systems: A total of 10 systems was reviewed and is negative other than as listed in the HPI Physical Exam Physical Exam: GENERAL : No acute distress. Pleasant EYES: No icterus, gaze conjugate NOSE: No evidence of epistaxis MOUTH: No lesions or candidiasis NECK: Supple LUNGS: CTA B/L, no wheezes, rales or rhonchi HEART: Regular, rate controlled ABDOMEN: Soft, NT, ND, BS Present EXTREMITIES: No LE edema, pedal pulses intact. Right leg immobilizer in place and secure. Patient is unable to dorsiflex her right foot secondary to pain. No asymmetrical edema. Foot is warm. No discoloration. Good capillary refill to all 5 toes. NEURO: A&OX3 Results & Data Results & Data ([facility]) Vital Signs (Past 12 Hours) Vital Signs Temp Pulse Resp BP Pulse Ox O2 Del Method 06/02/22 14:58 36.6 C 68 16 120/67 90 Room Air 06/02/22 07:41 36.9 C 60 16 131/61 91 Room Air Critical Care Results & Data Vital Signs (Past 12 Hours) Vital Signs Temp Pulse Resp BP Pulse Ox O2 Del Method 06/02/22 14:58 36.6 C 68 16 120/67 90 Room Air 06/02/22 07:41 36.9 C 60 16 131/61 91 Room Air Lab & Micro Results (Past 24 Hours) No Data to Display No Data to Display No Data to Display Diagnostic Findings (Past 24 Hours) Hip/Pelvis X-Ray 06/01/22 19:22 XR hip RT 2V w pelvis CLINICAL HISTORY: fall, mild r hip tenderness COMPARISON STUDY: Sacrum 10/22/2016. FINDINGS: Suboptimal evaluation of the pelvis and hips due to the patient's body habitus. However, no definite fracture or dislocation within the pelvis or hips. The sacrum appears intact. Vascular calcifications are noted. Mild degenerative changes. IMPRESSION: No definite fracture or dislocation within the pelvis or hips ACT 112: Negative or not required by law. Electronically signed by: Iván Fields M.D. 06/01/2022 8:12 PM Knee X-Ray 06/01/22 19:22 XR knee RT 3V CLINICAL HISTORY: lateral joint line pain, fall. Right knee pain. COMPARISON STUDY: None. FINDINGS: There is a moderate lipohemarthrosis. There is a comminuted and displaced lateral tibial plateau fracture which demonstrates up to 5 mm of depression. There is nondisplaced fracture within the fibular head. The distal femur is intact. IMPRESSION: 1. Comminuted and displaced lateral tibial plateau fracture. 2. Nondisplaced fibular head fracture. 3. Moderate lipohemarthrosis. ACT 112: Negative or not required by law. Electronically signed by: Iván Fields M.D. 06/01/2022 8:[address] 06/02/22 08:20 CT knee RT wo con CLINICAL HISTORY: tibial plateau fracture TECHNIQUE: Multidetector row helical CT of the right knee was performed without intravenous contrast. Coronal and sagittal reformations were obtained. Automated dose lowering techniques and/or adjustment according to patient size were utilized for this examination. CT DOSE: 365.32 mGy.cm Comparison: Comparison is made to right knee radiographs 06/01/2022 FINDINGS: There is a comminuted acute fracture of the lateral plateau of the tibia which extends to the medial aspect of the tibial tubercle.. In addition, there is a nondisplaced fracture of the proximal fibula. The joint spaces are maintained. There is a small suprapatellar lipohemarthrosis. Soft tissue swelling is seen. IMPRESSION: 1. Comminuted fracture of the lateral plateau of the tibia with extension to the medial articular surface. 2. Nondisplaced fracture of the fibular head. 3. Soft tissue swelling and lipohemarthrosis. ACT 112: Negative or not required by law. Electronically signed by: Sadiq Koroma M.D. 06/02/2022 11:16 AM I & O Totals 24 Hours 06/01/22 06/02/22 06/03/22 06:59 06:59 06:59 Intake Total 0 / 0 Output Total 250 / 250 Balance -250 / -250 Cumulative 06/01/22 17:14 thru 06/02/22 17:28 Intake Total 0 Output Total 250 Balance -250 RT Ventilator Mngmt (Last Documented) Ventilator Ordered Settings Respiratory Rate 16 06/02/22 14:58 Ventilator - PT Measurements Respiratory Rate 16 PG Care Time/CCT Total # of Minutes Spent Total Time Spent with Patient: Total time spent is greater than 50% in coordination of care (as documented) at patient's floor/unit and/or counseling patient:70 Coding Level of Care Code 05430 Subseq Hosp Care Lvl 3 (25 - SIGNIFICANT, SEPARATELY IDENTIFIABLE ) Diagnoses Fall due to accidental trip by another person W03.XXXA Closed fracture of tibial plateau S82.141A Encounter type: initial encounter Laterality: right Closed fracture fibula, head S82.831A Encounter type: initial encounter Laterality: right Benign essential hypertension I10 Mixed hyperlipidemia E78.2 Time Spent (min) 70 Comment 70 minutes of [id number] contact with the patient and her daughter to develop care plan (1) Closed fracture fibula, head Encounter type: initial encounter Laterality: right Qualified Code(s): S82.831A - Other fracture of upper and lower end of right fibula, initial encounter for closed fracture (2) Closed fracture of tibial plateau Encounter type: initial encounter Laterality: right Qualified Code(s): S82.141A - Displaced bicondylar fracture of right tibia, initial encounter for closed fracture
[2022-06-02] MEDS: ROSUVASTATIN CALCIUM 20 MG TAB PO SCH (20:04)
[2022-06-03] MEDS: ACETAMINOPHEN 500 MG TAB PO PRN (06:07)
[2022-06-03 08:12] LABS: Basophils # (auto) 0.06 K/uL (0-0.2); Basophils % (auto) 0.5 %; Eosinophils # (auto) 0.02 K/uL (0-0.50); Eosinophils % (auto) 0.2 %; Hematocrit (blood only) 39.2 % (34.1-44.9); Hemoglobin 12.8 g/dl (12.0-16.0); Immature Granulocytes # (auto) 0.05 K/uL (0.00-0.02); Immature Granulocytes % (auto) 0.4 %; Lymphocytes # (auto) 1.55 K/uL (1.2-3.4); Lymphocytes % (auto) 13.7 %; Mean Corpuscular Hemoglobin 28.7 pg (25.0-34.0); Mean Corpuscular Hgb Conc 32.7 g/dL (32.0-36.0); Mean Corpuscular Volume 87.9 fL (80.0-100.0); Mean Platelet Volume 9.9 fL (9.4-12.3); Monocytes # (auto) 1.06 K/uL (0.24-0.82); Monocytes % (auto) 9.4 %; Neutrophils # (auto) 8.57 K/uL (1.4-6.5); Neutrophils % (auto) 75.8 %; Platelet Count 146 K/uL (130-400); RDW Coefficient of Variation 13.7 % (11.5-14.5); RDW Standard Deviation 44.1 fL (36.4-46.3); Red Blood Count 4.46 M/uL (3.93-5.22); White Blood Count 11.31 K/ul (4.8-10.8)
[2022-06-03 08:36] LABS: BUN Creatinine Ratio 23.3 (10-20); Calcium 9.1 mg/dl (8.5-10.1); Creatinine Clr Calc Pharmacy 42.8 ml/min; Est GFR (African American) 58.2 ml/min; Est GFR (Non-African American) 50.2 ml/min; Potassium 3.5 mmol/L (3.5-5.1)
[2022-06-03] MEDS: METOPROLOL SUCC 50MG EXT REL TAB PO SCH (09:27)
--- NOTE | 2022-06-03 11:58 | Electrocardiogram Report ---
Test Reason : Blood Pressure : / mmHG Vent. Rate : 075 BPM Atrial Rate : 075 BPM P-R Int : 158 ms QRS Dur : 096 ms QT Int : 402 ms P-R-T Axes : 069 069 078 degrees QTc Int : 448 ms Normal sinus rhythm Low voltage QRS Poor R wave progression, consider anterior NC vs. lead placement vs. LVH Abnormal ECG When compared with ECG of 22-MAR-2006 14:42, No significant change was found Confirmed by Jam Marie ([id number]) on 06/03/2022 11:58:39 AM Referred By: REFERRED SELF Confirmed By:Salvador Marie
--- NOTE | 2022-06-03 13:29 | Hospitalist Progress Note ---
Date of Service June 03, 2022 Assessment & Plan (1) Fall due to accidental trip by another person: Plan: Attending: Dr. Thorpe Impression:81yo female with history of HTN, HLP presenting after a fall at home resulting in right sided comminuted and displaced lateral tibial plateau fracture and nondisplaced fibular head fracture. Patient is presently comfortable and pain is well controlled. Patient is tolerating oral analgesia and denies any further nausea or other symptoms. No additional complaints at this time. No loss of consciousness or head injury with fall Patient's has Parkinson's and lost his balance and fell into her resulting in fracture of leg Patient is add-on for surgical repair today with Dr. Llanos PT/OT consults are currently requested. Patient may benefit from nursing home versus rehab after surgery (2) Closed fracture of tibial plateau: Plan: Patient seen by orthopedics and is an add on for later today Daughter Analisa updated Continue pain management as needed-added prn toradol, tramadol, scheduled tylenol Good pulses and circulation to right lower extremity Continue with immobilizer and nonweightbearing on right side Has been n.p.o. since after midnight with the exception of sips with meds Continue to hold aspirin (3) Closed fracture fibula, head: Plan: Continue with immobilization of knee Nonweightbearing of right leg Orthopedics consulted and managing (4) Benign essential hypertension: Plan: Blood pressure mildly elevated at present, 155/80 on admission Continue Metoprolol 50mg po qAM Holding Olmesartan/HCTZ for now Blood pressure currently 113/54 Continue to monitor vital signs per protocol (5) Mixed hyperlipidemia: Plan: Chronic Continue Rosuvastatin Admission and Anticipated Discharge Date Admission Date: June 03, 2022 Supervising Physician Co-Signing Physician Notes PA Supervision Note: I did not personally see or examine the patient today, but I verified all oconnell points of GIOVANI Hubbard's assessment and plan with the following exceptions/addition s: None Subjective Attending: Dr. Thorpe This is a pleasant 81-year-old female that was admitted due to fall resulting in closed fracture of the right tibial plateau. Patient was placed in immobilizer and was seen by orthopedics. ORIF planned with Dr. Llanos as an add-on later today. Patient's daughter was updated initially by phone and then in person this morning. patient states that her pain is very well controlled. Her nausea is resolved. She has been n.p.o. since midnight other than sips with meds with which she had no difficulty. She has no acute complaints at this time Review of Systems Review of Systems: A total of 10 systems was reviewed and is negative other than as listed in the HPI Physical Exam Physical Exam: GENERAL : No acute distress. Pleasant EYES: No icterus, gaze conjugate NOSE: No evidence of epistaxis MOUTH: No lesions or candidiasis NECK: Supple LUNGS: CTA B/L, no wheezes, rales or rhonchi HEART: Regular, rate controlled ABDOMEN: Soft, NT, ND, BS Present EXTREMITIES: No LE edema, pedal pulses intact. Right leg immobilizer in place and secure. Patient slightly more tolerance to dorsiflex her right foot but is still limited to pain. No asymmetrical edema. Foot is warm. No discoloration. Good capillary refill to all 5 toes. NEURO: A&OX3 Results & Data Results & Data ([facility]) Vital Signs (Past 12 Hours) Vital Signs Temp Pulse Resp BP Pulse Ox O2 Del Method 06/03/22 07:53 37.0 C 66 18 113/54 L 93 Room Air ECG Additional Comments: Critical Care Results & Data Vital Signs (Past 12 Hours) Vital Signs Temp Pulse Resp BP Pulse Ox O2 Del Method 06/03/22 07:53 37.0 C 66 18 113/54 L 93 Room Air Lab & Micro Results (Past 24 Hours) 2 RBC 4.46 M/uL (3.93-5.22) 06/03/22 WBC 11.31 K/ul (4.8-10.8) H 06/03/22 Hgb 12.8 g/dl (12.0-16.0) 06/03/22 Hct 39.2 % (34.1-44.9) 06/03/22 MCV 87.9 fL (80.0-100.0) 06/03/22 MCH 28.7 pg (25.0-34.0) 06/03/22 MCHC 32.7 g/dL (32.0-36.0) 06/03/22 RDW Standard Deviation 44.1 fL (36.4-46.3) 06/03/22 RDW Coefficient of Variation 13.7 % (11.5-14.5) 06/03/22 Plt Count 146 K/uL (130-400) 06/03/22 MPV 9.9 fL (9.4-12.3) 06/03/22 Neutrophils (%) (Auto) 75.8 % 06/03/22 Lymphocytes (%) (Auto) 13.7 % 06/03/22 Monocytes # (Auto) 1.06 K/uL (0.24-0.82) H 06/03/22 Eosinophils # (Auto) 0.02 K/uL (0-0.50) 06/03/22 Immature Granulocyte % (Auto) 0.4 % 06/03/22 Neutrophils # (Auto) 8.57 K/uL (1.4-6.5) H 06/03/22 Lymphocytes # (Auto) 1.55 K/uL (1.2-3.4) 06/03/22 Monocytes # (Auto) 1.06 K/uL (0.24-0.82) H 06/03/22 Eosinophils # (Auto) 0.02 K/uL (0-0.50) 06/03/22 Basophils # (Auto) 0.06 K/uL (0-0.2) 06/03/22 Immature Granulocyte # (Auto) 0.05 K/uL (0.00-0.02) H 06/03 Na 138 mmol/L (136-145) 06/03/22 K 3.5 mmol/L (3.5-5.1) 06/03/22 Cl 102 mmol/L (98-107) 06/03/22 CO2 30 mmol/L (21-32) 06/03/22 Anion Gap 6 (3-11) 06/03/22 BUN 24 mg/dl (6-23) H 06/03/22 Creatinine 1.03 mg/dl (0.6-1.2) 06/03/22 Estimated GFR ( Amer) 58.2 ml/min 06/03/22 Estimated GFR (Non-Af Amer) 50.2 ml/min 06/03/22 BUN/Creatinine Ratio 23.3 (10-20) H 06/03/22 Glu 144 mg/dl (70-99(Fasting)) H 06/03/22 Ca 9.1 mg/dl (8.5-10.1) 06/03/22 Calcium Level 9.1 mg/dl (8.5-10.1) 06/03/22 07:31 I & O Totals 24 Hours 06/02/22 06/03/22 06/04/22 06:59 06:59 06:59 Intake Total 0 / 0 Output Total 250 / 250 600 / 600 Balance -250 / -250 -600 / -600 Cumulative 06/01/22 17:14 thru 06/03/22 06:29 Intake Total 0 Output Total 850 Balance -850 RT Ventilator Mngmt (Last Documented) Ventilator Ordered Settings Respiratory Rate 18 06/03/22 07:53 Ventilator - PT Measurements Respiratory Rate 18 PG Care Time/CCT Total # of Minutes Spent Total Time Spent with Patient: Total time spent is greater than 50% in coordination of care (as documented) at patient's floor/unit and/or counseling patient: Coding Level of Care Code 15117 Subseq Hosp Care Lvl 2 Diagnoses Fall due to accidental trip by another person W03.XXXA Closed fracture of tibial plateau S82.141A Encounter type: initial encounter Laterality: right Closed fracture fibula, head S82.831A Encounter type: initial encounter Laterality: right Benign essential hypertension I10 Mixed hyperlipidemia E78.2 (1) Closed fracture fibula, head Encounter type: initial encounter Laterality: right Qualified Code(s): S82.831A - Other fracture of upper and lower end of right fibula, initial encounter for closed fracture (2) Closed fracture of tibial plateau Encounter type: initial encounter Laterality: right Qualified Code(s): S82.141A - Displaced bicondylar fracture of right tibia, initial encounter for closed fracture
[2022-06-03] MEDS ORDERED: PROPOFOL IV EMULSION 10 MG/ML 20 ML VIAL IV ONE (14:47)
[2022-06-03] MEDS ORDERED: LIDOCAINE 2% MPF LOCAL 5 ML VIAL INFIL ONE (14:47)
[2022-06-03] MEDS ORDERED: ONDANSETRON INJ 2 MG/ML 2 ML VIAL ONE (14:47)
[2022-06-03] MEDS ORDERED: fentaNYL citrate 100 MCG/2 ML VIAL ONE (14:48)
[2022-06-03] MEDS ORDERED: ONDANSETRON INJ 2 MG/ML 2 ML VIAL IV PRN ×2 (15:40→19:07)
[2022-06-03] MEDS ORDERED: ATROPINE SULFATE 0.1 MG/ML 10ML SYR IV PRN (15:40)
[2022-06-03] MEDS ORDERED: fentaNYL citrate 100 MCG/2 ML VIAL IV PRN (15:40)
[2022-06-03] MEDS ORDERED: ePHEDrine sulfate 50 MG/ML AMP IV PRN (15:40)
[2022-06-03] MEDS ORDERED: ceFAZolin 2,000 MG/15 ML IV PUSH IV ONE (15:53)
--- NOTE | 2022-06-03 16:02 | History & Physical Bridge Note ---
Date of Service June 03, 2022 History & Physical Bridge Note I have examined the patient, reviewed the History & Physical and in the interval since the performance of the History & Physical I have noted the following changes of clinical significance: no changes noted. I do lengthy discussion further regarding risk benefits potential complications of right tibia open reduction internal fixation with possible bone grafting. These risk include but are not limited to: Infection, neurovascular injury, DVT, nonunion, malunion, hardware failure and need for subsequent surgical procedures. After reviewing these she has elected proceed with surgical intervention and written consent was obtained.
[2022-06-03] MEDS ORDERED: PHENYLEPHRINE 100MCG/ML 5ML SYR ONE ×2 (16:14→16:33)
[2022-06-03] MEDS ORDERED: ePHEDrine sulfate 50 MG/ML SYR ONE (16:33)
[2022-06-03] MEDS ORDERED: GLYCOPYRROLATE 0.2 MG/ML VIAL ONE (17:39)
[2022-06-03] MEDS ORDERED: NEOSTIGMINE METHYLSULFATE 1 MG/ML 10ML VIAL ONE (17:39)
--- NOTE | 2022-06-03 17:50 | Fluoroscopy Report ---
FL tibia/fibula RT 2V CLINICAL HISTORY: RT ORIF TIBIAL PLATEAU FX TECHNIQUE: 2 views were obtained with the C-arm in the OR with the above procedure. Total fluoroscopy time was 58 seconds. Comparison: Comparison is made to CT knee 06/02/2022 FINDINGS/IMPRESSION: Intraoperative images were obtained of open reduction internal fixation of tibia l plateau fracture. Please correlate with intraoperative fluoroscopy and operative report. ACT 112: Negative or not required by law. Electronically signed by: Sadiq Koroma M.D. 06/03/2022 5:48 PM
--- NOTE | 2022-06-03 18:03 | Post Operative Brief Note ---
Immediate Post Op Note v1 Date of Surgery June 03, 2022 Pre & Post Diagnosis Operation Date: 06/03/22 09:20 Pre-Op Diagnosis: Closed fracture of tibial plateau Post-Op Diagnosis: Closed fracture of tibial plateau I identified the patient and participated in the time-out.: Yes Procedure Operation Date: 06/03/22 09:20 Actual Procedures p Open Reduction Internal Fixation of Right Tibial Plateau Fracture with Allograft(Right) - Duran Llanos DO Surgeon Duran Llanos DO Roll Clamp Operator Hiro Lynn PA-C Estimated Blood Loss 15 Findings Consistent with Post-Op Diagnosis See dictation Complications None
--- NOTE | 2022-06-03 18:12 | Operative Report ---
Post Operative Report Pre & Post Diagnosis Operation Date: 06/03/22 09:20 Pre-Op Diagnosis: Closed fracture of tibial plateau Post-Op Diagnosis: Closed fracture of tibial plateau I identified the patient and participated in the time-out.: Yes Procedure Operation Date: 06/03/22 09:20 Actual Procedures p Open Reduction Internal Fixation of Right Tibial Plateau Fracture with Allograft(Right) - Duran Llanos DO Surgeon Duran Llanos DO Boarding House Manager Hiro Lynn PA-C Estimated Blood Loss 15 Findings Consistent with Post-Op Diagnosis See dictation Specimens None Complications None Indications 81-year-old female who presented to [facility] emergency department after sustaining a ground-level fall while trying to move her . She landed on her right tibia she noted immediate pain and swelling to her knee. Radiographs were obtained in the emergency department demonstrating a split depressed right lateral tibial plateau fracture. She was admitted to medical service and orthopedics was consulted for operative management. I met with the patient preoperatively and we had a lengthy discussion regarding risk benefits and potential complications of open reduction internal fixation of her right tibial plateau fracture with possible bone grafting. Risk include but are not limited to: Infection, neurovascular injury, DVT, nonunion, malunion, hardware failure and need for future surgery. After reviewing these she elected to proceed with surgical intervention and written consent was obtained. Description of Procedure Implants: Synthes 4-hole 3.5 mm variable angle proximal tibial plate, 3.5 mm x 45 mm cortical screw, (7)3.5 mm variable angle locking screws. Procedure: Patient was properly identified in the preoperative holding area and the right lower extremity was marked. She was then taken back to the operative suite where she received general anesthesia. She received Ancef per protocol. She was then transferred over to the [place] table. She was positioned supine with a bone foam under her right leg and nonsterile thigh tourniquet. She was then prepped and draped in standard orthopedic fashion and timeout was then performed. Esmarch was used to exsanguinate the right lower extremity and tourniquet was inflated to 250 mmHg. A lazy S incision centered over Selin's tubercle was then made with a scalpel. Metzenbaum scissors were used to dissect through subcutaneous tissue down to the deep fascia which was then split in line with the incision. A 15 blade scalpel was then used to dissect tissue off of Selin's tubercle followed by an elevator. This revealed a split depressed lateral tibial plateau fracture. Some meniscal arthrotomy was then performed and residual fracture hematoma was evacuated. Fluoroscopy was then used to assess the depressed fragments over the posterior lateral aspect of the articular surface. Using a Cordis osteotome a bone window was made at the lateral metaphyseal junction and a curved tamp was used to tamp up the articular fragments from their prior depressed position. This was done under the assistance of fluoroscopy. Crushed cancellous chips were then used to backfill under the fragments. This obtained a nice reduction of the articular surface. A 4 hole variable angle locking plate was then pinned into position over the proximal aspect of the tibia. A 3.5 millimeter screw was then placed in the oblong hole and compress the plate down to the tibial shaft. This further compressed the joint articular surface restoring a near anatomic reduction. Attention was then turned to placement of the 4 3.5 mm variable angle screws underneath the articular surface. Screws were placed and assessed with fluoroscopy and demonstrated no intra-articular penetration. Kickstand screw was then drilled and placed followed by oblique locking screw on the proximal shaft just above the nonlocking screw. Lastly distal locking screw was then drilled and placed. Final radiographs were obtained demonstrating good reducti on of the fracture and positioning of the plate there was no evidence of any intra-articular penetration. Wounds were then copiously irrigated and deep fascia was closed using a combination of 0 Vicryl in an interrupted fashion followed by running 1 Vicryl. Subcutaneous tissues were then copiously irrigated and dried tourniquet was deflated and subcutaneous tissues were closed using 2-0 Vicryl in interrupted fashion. [place] were then used to close the skin. A sterile Silverlon dressing was then applied. Dressing of ABDs web roll and Gerson wrap was then applied the patient was placed in a knee immobilizer. Patient tolerated procedure well and was taken to the recovery room in hemodynamically stable condition I attest to the content of the Intraoperative Record and any orders documented therein. Any exceptions are noted below.
--- NOTE | 2022-06-03 18:46 | Anesthesiology Progress Note ---
Date of Service June 03, 2022 Anesthesia Post Procedure Vital Signs Vital Signs: Temp Pulse Pulse Resp BP Pulse Ox O2 Del Method 06/03/22 18:35 71 20 156/69 H 98 Nasal Cannula 06/03/22 18:25 36 C L 74 21 147/69 H 98 Nasal Cannula 06/03/22 18:15 72 21 142/71 H 98 Oxymask 06/03/22 18:05 80 22 138/66 100 Oxymask 06/03/22 17:58 36.8 C 68 17 127/62 95 Oxymask 06/03/22 15:22 36.5 C 77 22 150/67 H 95 Room Air 06/03/22 07:53 37.0 C 66 18 113/54 L 93 Room Air 06/02/22 22:58 37.1 C 68 16 146/72 H 91 Room Air O2 Flow Rate 06/03/22 18:35 2 06/03/22 18:25 2 06/03/22 18:15 4 06/03/22 18:05 8 06/03/22 17:58 8 06/03/22 15:22 06/03/22 07:53 06/02/22 22:58 Pain Intensity Right Knee: Pain Intensity: 2 Transfer of Care Handoff Completed per policy Notes Mental Status: alert / awake / arousable Patient Amnestic to Procedure: Yes Nausea / Vomiting: adequately controlled Pain: adequately controlled Airway Patency, RR, SpO2: stable & adequate BP & HR: stable & adequate Hydration State: stable & adequate Anesthetic Complications: no major complications apparent and Pt Satisfied with anesthetic care
[2022-06-03] MEDS ORDERED: MAGNESIUM HYDROXIDE SUSP 30 ML UDC PO PRN (19:07)
[2022-06-03] MEDS ORDERED: NALOXONE HCL 0.4 MG/1 ML VIAL/CARP IV PRN (19:07)
[2022-06-03] MEDS ORDERED: bisacodyL 10 MG SUPP PR PRN (19:07)
[2022-06-03] MEDS ORDERED: METOCLOPRAMIDE HCL INJ 5 MG/ML 2 ML VIAL IV PRN (19:07)
[2022-06-03] MEDS: SODIUM CHLORIDE 0.9% 1000ML 1,000 ML IV SCH (19:28)
[2022-06-03] MEDS: ROSUVASTATIN CALCIUM 20 MG TAB PO SCH (20:42)
[2022-06-03] MEDS: SENNA 8.6 MG TAB PO SCH (20:43)
[2022-06-03] MEDS: DOCUSATE SODIUM 100 MG CAP PO SCH (20:45)
[2022-06-03] MEDS: ASPIRIN 81 MG ECTAB PO SCH (20:45)
--- NOTE | 2022-06-03 21:22 | XRay Report ---
XR tibia fibula RT 2V CLINICAL HISTORY: post op ORIF lateral tibial plateau TECHNIQUE: 2 radiographic views of the right leg were obtained. Comparison: Comparison is made to knee radiograph 06/01/2022 and fluoroscopy of the legs 06/03/2022 FINDINGS: Postoperative changes are seen of open reduction internal fixation of the lateral tibial plateau nehemias baxter. IMPRESSION: Expected postoperative changes are seen without acute abnormality. ACT 112: Negative or not required by law. Electronically signed by: Sadiq Koroma M.D. 06/03/2022 9:20 PM
[2022-06-03] MEDS: ceFAZolin 2000MG 2,000 MG/15 ML SYR IV SCH (23:44)
[2022-06-03] MEDS ORDERED: Nursing to Pharmacy Communication SCH (23:45)
[2022-06-04] MEDS: SODIUM CHLORIDE 0.9% 1000ML 1,000 ML IV SCH (06:00)
[2022-06-04 07:42] LABS: Hematocrit (blood only) 36.3 % (34.1-44.9); Hemoglobin 11.7 g/dl (12.0-16.0); Mean Corpuscular Hemoglobin 29.2 pg (25.0-34.0); Mean Corpuscular Hgb Conc 32.2 g/dL (32.0-36.0); Mean Corpuscular Volume 90.5 fL (80.0-100.0); Mean Platelet Volume 10.1 fL (9.4-12.3); Platelet Count 134 K/uL (130-400); RDW Coefficient of Variation 13.8 % (11.5-14.5); RDW Standard Deviation 46.3 fL (36.4-46.3); Red Blood Count 4.01 M/uL (3.93-5.22); White Blood Count 9.76 K/ul (4.8-10.8)
[2022-06-04 08:02] LABS: Calcium 8.8 mg/dl (8.5-10.1); Est GFR (African American) 56.9 ml/min; Est GFR (Non-African American) 49.1 ml/min; Potassium 4.1 mmol/L (3.5-5.1)
--- NOTE | 2022-06-04 08:12 | Orthopedic Progress Note ---
Date of Service June 04, 2022 Assessment & Plan (1) Closed fracture of tibial plateau: Plan: 81 yo female stable POD #1 s/p ORIF right lateral tibial plateau fracture 1. Med management 2. DVT prophylaxis- begin Eliquis today, SCDs 3. PT/OT- NWB right LE 4. D/C planning- Admission and Anticipated Discharge Date Admission Date: June 03, 2022 Subjective Pt resting in bed, states moderate pain overnight Physical Exam Physical Exam: Knee immobilizer and DANNA wrap in place, toes mobile, NVI Results & Data ([facility]) Vital Signs (Past 12 Hours) Vital Signs Temp Pulse Resp BP Pulse Ox O2 Del Method O2 Flow Rate 06/04/22 07:16 36.9 C 61 16 127/71 90 Room Air 06/04/22 03:24 36.9 C 70 16 121/71 94 Nasal Cannula 2 06/03/22 22:36 37.0 C 68 18 122/70 96 Nasal Cannula 2 06/03/22 21:31 36.6 C 70 18 146/69 H 98 Nasal Cannula 2 Laboratory Results 06/04/22 06/04/22 06/03/22 Range/Units 06:36 06:36 07:31 WBC 9.76 (4.8-10.8) K/ul RBC 4.01 (3.93-5.22) M/uL Hgb 11.7 L (12.0-16.0) g/dl Hct 36.3 (34.1-44.9) % MCV 90.5 (80.0-100.0) fL MCH 29.2 (25.0-34.0) pg MCHC 32.2 (32.0-36.0) g/dL RDW Std Deviation 46.3 (36.4-46.3) fL RDW Coeff of Sylvain 13.8 (11.5-14.5) % Plt Count 134 (130-400) K/uL MPV 10.1 (9.4-12.3) fL Immature Gran % (Auto) % Neut % (Auto) % Lymph % (Auto) % Miner % (Auto) % Eos % (Auto) % Baso % (Auto) % Neut # (Auto) (1.4-6.5) K/uL Lymph # (Auto) (1.2-3.4) K/uL Miner # (Auto) (0.24-0.82) K/uL Eos # (Auto) (0-0.50) K/uL Baso # (Auto) (0-0.2) K/uL Immature Gran # (Auto) (0.00-0.02) K/uL Sodium 137 138 (136-145) mmol/L Potassium 4.1 3.5 (3.5-5.1) mmol/L Chloride 101 102 (98-107) mmol/L Carbon Dioxide 29 30 (21-32) mmol/L Anion Gap 7 6 (3-11) BUN 20 24 H (6-23) mg/dl Creatinine 1.05 1.03 (0.6-1.2) mg/dl Est Cr Clr Drug Dosing 42.0 42.8 ml/min Est GFR ( Amer) 56.9 58.2 ml/min Est GFR (Non-Af Amer) 49.1 50.2 ml/min BUN/Creatinine Ratio 19.0 23.3 H (10-20) Glucose 117 H 144 H (70-99(Fasting)) mg/dl Calcium 8.8 9.1 (8.5-10.1) mg/dl Magnesium 2.0 (1.7-2.4) mg/dl 06/03/22 Range/Units 07:31 WBC 11.31 H (4.8-10.8) K/ul RBC 4.46 (3.93-5.22) M/uL Hgb 12.8 (12.0-16.0) g/dl Hct 39.2 (34.1-44.9) % MCV 87.9 (80.0-100.0) fL MCH 28.7 (25.0-34.0) pg MCHC 32.7 (32.0-36.0) g/dL RDW Std Deviation 44.1 (36.4-46.3) fL RDW Coeff of Sylvain 13.7 (11.5-14.5) % Plt Count 146 (130-400) K/uL MPV 9.9 (9.4-12.3) fL Immature Gran % (Auto) 0.4 % Neut % (Auto) 75.8 % Lymph % (Auto) 13.7 % Miner % (Auto) 9.4 % Eos % (Auto) 0.2 % Baso % (Auto) 0.5 % Neut # (Auto) 8.57 H (1.4-6.5) K/uL Lymph # (Auto) 1.55 (1.2-3.4) K/uL Miner # (Auto) 1.06 H (0.24-0.82) K/uL Eos # (Auto) 0.02 (0-0.50) K/uL Baso # (Auto) 0.06 (0-0.2) K/uL Immature Gran # (Auto) 0.05 H (0.00-0.02) K/uL Sodium (136-145) mmol/L Potassium (3.5-5.1) mmol/L Chloride (98-107) mmol/L Carbon Dioxide (21-32) mmol/L Anion Gap (3-11) BUN (6-23) mg/dl Creatinine (0.6-1.2) mg/dl Est Cr Clr Drug Dosing ml/min Est GFR ( Amer) ml/min Est GFR (Non-Af Amer) ml/min BUN/Creatinine Ratio (10-20) Glucose (70-99(Fasting)) mg/dl Calcium (8.5-10.1) mg/dl Magnesium (1.7-2.4) mg/dl (1) Closed fracture of tibial plateau Encounter type: initial encounter Laterality: right Qualified Code(s): S82.141A - Displaced bicondylar fracture of right tibia, initial encounter for closed fracture
[2022-06-04] MEDS: traMADol HCL 50 MG TABLET PO PRN ×3 (08:42→20:21)
[2022-06-04] MEDS: MULTIVITAMIN TAB PO SCH (08:43)
[2022-06-04] MEDS: APIXABAN 2.5 MG TAB PO SCH ×2 (08:43→20:20)
[2022-06-04] MEDS: METOPROLOL SUCC 50MG EXT REL TAB PO SCH (08:43)
[2022-06-04] MEDS: DOCUSATE SODIUM 100 MG CAP PO SCH ×2 (08:43→20:55)
[2022-06-04] MEDS: ceFAZolin 2000MG 2,000 MG/15 ML SYR IV SCH (09:08)
[2022-06-04] MEDS: ACETAMINOPHEN 500 MG TAB PO PRN ×2 (11:26→23:15)
--- NOTE | 2022-06-04 18:45 | Hospitalist Progress Note ---
Date of Service June 04, 2022 Assessment & Plan (1) Fall due to accidental trip by another person: Plan: 81yo female with history of HTN, HLP presenting after a fall at home resulting in right sided comminuted and displaced lateral tibial plateau fracture and nondisplaced fibular head fracture. No loss of consciousness or head injury with fall Patient's has Parkinson's and lost his balance and fell into her resulting in fracture of leg Now s/p ORIF w/ Dr. Llanos on 06/03 DOing well post-op, pain control with tylenol, tramadol Post-op CBC, BMP fine No BM yet-bowel regimen ordered DVT prophylaxis with ELiqus 2.5mg po bid plan for dc to rehab at [facility] tomorrow f/u Ortho and weight bearing status as per Ortho (2) Closed fracture of tibial plateau: Plan: as above (3) Closed fracture fibula, head: Plan: Continue with immobilization of knee Nonweightbearing of right leg Orthopedics consulted and managing (4) Benign essential hypertension: Plan: Blood pressure controlled Continue Metoprolol 50mg po qAM Holding Olmesartan/HCTZ for now follow BPs (5) Mixed hyperlipidemia: Plan: Chronic Continue Rosuvastatin (6) Carotid artery stenosis: Plan: h/o CEA 2005 continue ASA, statin (7) Impaired fasting glucose: Plan: HgbA1C 6.3% 11/2021, no acute issues or medications needed Plan Dispo-continued stay, rehab placement [facility] tomorrow Discussed care with daughter on phone on 06/04 Admission and Anticipated Discharge Date Admission Date: June 03, 2022 Subjective Pt having throbbing in RLE, tramadol helps but makes her drowsy and decreases her appetite. No BM since admission No CP, SOB. Was OOB with PT. Review of Systems Review of Systems: All systems reviewed & are unremarkable except as noted in HPI & below Physical Exam Constitutional: WD/WN, vitals as above Eyes: + anicteric sclerae Neck: trachea midline, no thyromegaly Respiratory: normal respiratory effort, lungs clear to auscultation Cardiovascular: RRR, no murmur, no edema Chest (Breasts): Chest: normal inspection of chest Gastrointestinal (Abdomen): normal bowel sounds, soft, nontender, no hepatosplenomegaly Musculoskeletal: Extremities: + extremities abnormal to inspection (RLE in DANNA wrap, NVI distally RLE), no cyanosis and no clubbing Skin: no rashes, warm and dry Neurologic: moves all extremities and awake; no focal motor deficits Psychiatric: A+Ox3, euthymic affect Lymphatic: no lymphedema Results & Data Results & Data ([facility]) Vital Signs (Past 12 Hours) Vital Signs Temp Pulse Resp BP Pulse Ox O2 Del Method 06/04/22 14:47 36.6 C 71 16 108/62 90 Room Air 06/04/22 11:15 36.7 C 68 18 119/69 93 Room Air 06/04/22 07:16 36.9 C 61 16 127/71 90 Room Air Laboratory Results 06/04/22 06/04/22 Range/Units 06:36 06:36 WBC 9.76 (4.8-10.8) K/ul RBC 4.01 (3.93-5.22) M/uL Hgb 11.7 L (12.0-16.0) g/dl Hct 36.3 (34.1-44.9) % MCV 90.5 (80.0-100.0) fL MCH 29.2 (25.0-34.0) pg MCHC 32.2 (32.0-36.0) g/dL RDW Std Deviation 46.3 (36.4-46.3) fL RDW Coeff of Sylvain 13.8 (11.5-14.5) % Plt Count 134 (130-400) K/uL MPV 10.1 (9.4-12.3) fL Sodium 137 (136-145) mmol/L Potassium 4.1 (3.5-5.1) mmol/L Chloride 101 (98-107) mmol/L Carbon Dioxide 29 (21-32) mmol/L Anion Gap 7 (3-11) BUN 20 (6-23) mg/dl Creatinine 1.05 (0.6-1.2) mg/dl Est Cr Clr Drug Dosing 42.0 ml/min Est GFR ( Amer) 56.9 ml/min Est GFR (Non-Af Amer) 49.1 ml/min BUN/Creatinine Ratio 19.0 (10-20) Glucose 117 H (70-99(Fasting)) mg/dl Calcium 8.8 (8.5-10.1) mg/dl Magnesium 2.0 (1.7-2.4) mg/dl PG Care Time/CCT Total # of Minutes Spent Total Time Spent with Patient: Total time spent is greater than 50% in coordination of care (as documented) at patient's floor/unit and/or counseling patient: Coding Level of Care Code 07836 Subseq Hosp Care Lvl 2 Diagnoses Fall due to accidental trip by another person W03.XXXA Closed fracture of tibial plateau S82.141A Encounter type: initial encounter Laterality: right Closed fracture fibula, head S82.831A Encounter type: initial encounter Laterality: right Benign essential hypertension I10 Mixed hyperlipidemia E78.2 Carotid artery stenosis I65.29 Impaired fasting glucose R73.01 (1) Closed fracture of tibial plateau Encounter type: initial encounter Laterality: right Qualified Code(s): S82.141A - Displaced bicondylar fracture of right tibia, initial encounter for closed fracture (2) Closed fracture fibula, head Encounter type: initial encounter Laterality: right Qualified Code(s): S82.831A - Other fracture of upper and lower end of right fibula, initial encounter for closed fracture
[2022-06-04] MEDS: ASPIRIN 81 MG ECTAB PO SCH (20:20)
[2022-06-04] MEDS: ROSUVASTATIN CALCIUM 20 MG TAB PO SCH (20:20)
[2022-06-04] MEDS: SENNA 8.6 MG TAB PO SCH (20:20)
[2022-06-05] MEDS: APIXABAN 2.5 MG TAB PO SCH (08:32)
[2022-06-05] MEDS: DOCUSATE SODIUM 100 MG CAP PO SCH (08:32)
[2022-06-05] MEDS: MULTIVITAMIN TAB PO SCH (08:32)
[2022-06-05] MEDS: METOPROLOL SUCC 50MG EXT REL TAB PO SCH (08:32)
[2022-06-05] MEDS: ACETAMINOPHEN 500 MG TAB PO PRN (08:35)
--- NOTE | 2022-06-05 09:00 | Orthopedic Progress Note ---
Date of Service June 05, 2022 Assessment & Plan (1) Closed fracture of tibial plateau: Plan: 81 yo female stable POD #2 s/p ORIF right lateral tibia plateau fx 1. Med management 2. DVT prophylaxis- Wanda, SCDs 3. PT/OT- NWB right LE 4. D/C planning- pt scheduled for d/c to [facility] today Admission and Anticipated Discharge Date Admission Date: June 03, 2022 Subjective Pt resting in bed, pain controlled, denies complaints Physical Exam Physical Exam: Dressing d/c'd, Silverlon intact, toes mobile NVI Results & Data ([facility]) Vital Signs (Past 12 Hours) Vital Signs Temp Pulse Resp BP BP Pulse Ox O2 Del Method 06/05/22 07:31 37.2 C 75 20 113/62 92 Room Air 06/04/22 22:02 37 C 71 16 116/63 92 Room Air (1) Closed fracture of tibial plateau Encounter type: initial encounter Laterality: right Qualified Code(s): S82.141A - Displaced bicondylar fracture of right tibia, initial encounter for closed fracture
--- NOTE | 2022-06-05 10:57 | Discharge Summary ---
Date of Service June 05, 2022 Admission HPI Per Admitting Provider Charleen Graves is an 81yo female with history of HTN and HLP presenting from home after a fall resulting in a right sided tibial plateau/fibular head fracture. Patient was at home today with her who has Parkinson's Disease. Her lost his balance and began to fall and the patient tried to catch him. Patient's fell onto the patient - reports that he felt a pop from her leg. Patient was unable to ambulate or bear weight on the right leg following the fall due to pain. She did not hit her head or lose consciousness. No additional complaints. Specifically denies chest pain, palpitations, dizziness, abdominal pain, nausea, vomiting, diarrhea or shortness of breath. ER provider discussed case with Orthopedics. Recommended resting the leg, will have splint placement in AM. Daughter at bedside wants to take patient home tonight. ER Course: No medications administered Principal Diagnosis Right tibial plateau and fibula fractures, Fall Discharge Exam Constitutional WD/WN, vitals as above Eyes + anicteric sclerae Neck trachea midline, no thyromegaly Respiratory normal respiratory effort, lungs clear to auscultation Cardiovascular RRR, no murmur, no edema Chest (Breasts) Chest: normal inspection of chest Gastrointestinal (Abdomen) normal bowel sounds, soft, nontender, no hepatosplenomegaly Musculoskeletal Extremities: + extremities abnormal to inspection (RLE in knee immobilizer not removed by me, NVI distally RLE), no cyanosis and no clubbing Skin no rashes, warm and dry Neurologic moves all extremities and awake; no focal motor deficits Psychiatric A+Ox3, euthymic affect Lymphatic no lymphedema Discharge Data Allergies Allergy/AdvReac Type Severity Reaction Status Date / Time codeine Allergy Unknown Verified 06/01/22 21:09 oxycodone AdvReac Severe SEVERE Verified 06/01/22 21:09 ITCHING meperidine AdvReac Unknown Unknown Verified 06/01/22 21:09 morphine AdvReac Unknown Unknown Verified 06/01/22 21:09 propoxyphene AdvReac Unknown Unknown Verified 06/01/22 21:09 Consultations 06/01/22 21:16 ED Decision to Admit Stat 06/01/22 23:51 Consult Orthopedic Surgery Routine Procedures Performed Operation Date: 06/03/22 09:20 Actual Procedures p Open Reduction Internal Fixation of Right Tibial Plateau Fracture with Allograft(Right) - Duran Llanos, Ordered Studies 06/02/22 08:20 CT knee RT wo con Urgent 06/03/22 17:00 FL tibia/fibula RT 2V Routine Hospital Course (1) Fall due to accidental trip by another person: 81yo female with history of HTN, HLP presenting after a fall at home resulting in right sided comminuted and displaced lateral tibial plateau fracture and nondisplaced fibular head fracture. No loss of consciousness or head injury with fall Patient's has Parkinson's and lost his balance and fell into her resulting in fracture of leg Now s/p ORIF w/ Dr. Llanos on 06/03 DOing well post-op, pain control with tylenol, tramadol Post-op CBC, BMP fine No BM yet-bowel regimen ordered, has bowel sounds, passing flatus, no abd pain, no nausea, sloan diet DVT prophylaxis with ELiqus 2.5mg po bid x 2 weeks, SCDs plan for dc to rehab at [facility] today f/u Ortho in office in 2 weeks and non weight bearing status RLE as per Ortho (2) Closed fracture of tibial plateau: as above (3) Closed fracture fibula, head: Continue with immobilization of knee Nonweightbearing of right leg Orthopedics consulted and managing (4) Benign essential hypertension: Blood pressure controlled Continue Metoprolol 50mg po qAM Holding Olmesartan/HCTZ for now but restart on discharge, BPs stable (5) Mixed hyperlipidemia: Chronic Continue Rosuvastatin (6) Carotid artery stenosis: h/o CEA 2005 continue ASA, statin (7) Impaired fasting glucose: HgbA1C 6.3% 11/2021, no acute issues or medications needed Plan Dispo- rehab placement [facility] today Discussed care with daughter on phone on 06/04 Total Time Total Time Spent Total Time Spent (In Minutes): 35 min Discharge Plan Discharge Items Patient Disposition: Transfer Inpatient Rehab Fac Reason For Visit: TIBIAL PLATEAU, FIBULAR HEAD FRACTURE Discharge Diagnosis: Right tibial plateau fracture, fibula fracture Condition on Discharge: Fair Activity: As commented below Weightbearing: Right non-weightbearing Non-emergency contact: Primary Care Provider and Surgeon Call non-emergency contact if: you have any medication questions, your symptoms worsen, your pain is not controlled, your wound has increased redness, your wound has increased drainage and your wound pain has increased Follow-up/Referrals: Ema Becerra CRNP [Primary Care Provider] - Duran Llanos DO [Surgeon] - Diet: Heart Healthy Addjuliane Attending Provider Instructions: You can take tramadol as needed for moderate-severe pain and tylenol for mild- moderate pain. Addtl [employer] Provider Instructions: Strict nonweightbearing right lower extremity with walker. Maintain knee immobilizer at all times when ambulating. May remove knee immobilizer several times daily for knee range of motion as tolerated. Encourage ankle/foot range of motion frequently. Ice and elevation as needed. Remove Silverlon dressing one week from surgery, may shower with Silverlon in place. Follow up with Dr Llanos/MONIKA 10-14 days postop, call [phone] for appt or with question/concerns. Pending Studies at Discharge: No Stand-Alone Forms: My [employer] Skilled Items Patient informed of condition?: Yes DNR: No Discharge Level of Care: Acute rehab Communicable Disease: No Discharge Prognosis: Improving Lines: None Urinary Catheter: No Medications and DC Order Prescriptions: New tramadol 50 mg Tablet 50 - 100 mg PO Q4H PRN (Reason: moderate-severe pain) Qty: 20 0RF acetaminophen [Tylenol Extra Strength] 500 mg Tablet 1,000 mg PO Q8H PRN (Reason: mild-moderate pain) Qty: 30 0RF Eliquis 2.5 mg Tablet 2.5 mg PO BID 14 Days Qty: 28 0RF sennosides [Senokot] 8.6 mg Tablet 17.2 mg PO HS Qty: 60 0RF docusate sodium 100 mg Capsule 100 mg PO BID Qty: 60 0RF multivitamin with folic acid [Daily-Melissa (with folic acid)] 400 mcg Tablet 1 tab PO QAM Qty: 30 0RF Continued rosuvastatin 40 mg tablet 40 mg PO HS aspirin 81 mg Tablet,Delayed Release (Dr/Ec) 81 mg PO HS metoprolol succinate 50 mg tablet extended release 24 hr 50 mg PO QAM olmesartan-hydrochlorothiazide [Benicar HCT] 40-12.5 mg tablet 1 tab PO QAM Discharge Orders: Discharge Order (Routine); Ordered 06/05/22 Ordered By: Yandy Thorpe Admission Data Admit Date/Time: 06/03/22 10:15 Attending Provider: Yandy Thorpe Admit Provider: Alisa Chao Primary Care Provider: Ema Becerra. Other Providers: [facility] ; [facility] ; Alisa Chao ; Warner Ortiz Other Interventions: Discharge Summary Assessment (RN) Last Done: 06/05/22 10:51 Coding Level of Care Code D/C DAY MANAGEMENT >30 MINS Diagnoses Fall due to accidental trip by another person W03.XXXA Closed fracture of tibial plateau S82.141A Encounter type: initial encounter Laterality: right Closed fracture fibula, head S82.831A Encounter type: initial encounter Laterality: right Benign essential hypertension I10 Mixed hyperlipidemia E78.2 Carotid artery stenosis I65.29 Impaired fasting glucose R73.01
== END 2022-06-05 12:25 | DRG 494 ==
LOC: 3W 17:14 → ED 17:14 → SUATTDRO 21:28 → 3W 23:21